=== PATIENT | female | born 1970 | race African-American/Black ===

== ENCOUNTER 2017-01-16 08:56 | Emergency (ER) | payer MEDICAID ==
[~2017-01-16] VITALS: Ht 165.1 cm; Wt 70.0 kg
[2017-01-16 14:39] LABS: CLARITY URINE CLOUDY (CLEAR); COLOR URINE YELLOW (YELLOW); GLUCOSE URINE NEGATIVE (NEGATIVE); KETONES URINE NEGATIVE (NEGATIVE); LEUKOCYTE ESTERASE URINE TRACE (NEGATIVE); NITRITE URINE NEGATIVE (NEGATIVE); OCCULT BLOOD URINE NEGATIVE (NEGATIVE); PH URINE 5.5 (4.5-8.0); PROTEIN URINE NEGATIVE (NEGATIVE); SPECIFIC GRAVITY URINE 1.024 (1.005-1.030)
[2017-01-16] MEDS ORDERED: LIDOCAINE HCL 1% 20ML VIAL (Pyxis) INJ INFIL ONE (15:45)
[2017-01-16] MEDS ORDERED: AZITHROMYCIN 500 MG TABLET PO ONE (15:45)
[2017-01-16] MEDS ORDERED: CEFTRIAXONE SODIUM 250 MG/VIAL IM ONE (15:45)
[2017-01-16 16:32] VITALS: BP 131/90
== END 2017-01-16 18:25 | disposition home or self-care (01) ==
LOC: ER 09:24
DX: N76.0 Acute vaginitis (principal); N39.0 Urinary tract infection, site not specified; B86 Scabies; Z20.7 Contact with and (suspected) exposure to pediculosis, acariasis and other infestations; J45.909 Unspecified asthma, uncomplicated; I10 Essential (primary) hypertension; Z87.891 Personal history of nicotine dependence; F12.10 Cannabis abuse, uncomplicated
CPT/HCPCS: 81001; 81025; 87210; 96372; 99284; J0696; J3490; Z7610